=== PATIENT | female | born 1995 | race Caucasian/White ===

== ENCOUNTER 2016-10-07 09:15 | Outpatient (CLI) | payer MEDICAID | END 2016-10-07 09:16 | disposition home or self-care (01) | DX: R13.10 Dysphagia, unspecified (principal) ==

== ENCOUNTER 2016-10-26 11:10 | Outpatient (CLI) | payer MEDICAID | END 2016-10-26 11:11 | disposition home or self-care (01) | DX: E04.1 Nontoxic single thyroid nodule (principal) ==

== ENCOUNTER 2016-11-04 11:53 | Day surgery (SDC) | payer MEDICAID ==
[2016-11-04] MEDS ORDERED: LACTATED RINGERS 1,000 ML IV ONE (12:12)
[2016-11-04] MEDS ORDERED: LIDO GARGLE 30 ML BOTTLE PO ONE (12:36)
[2016-11-04] MEDS ORDERED: SIMETHICONE 40 MG/0.6 ML 30 ML BOTTLE PO ONE (12:36)
[2016-11-04] MEDS ORDERED: BENZOCAINE/TETRACAINE/BUTAMBEN SPRAY 56 GM TOP ONE (12:36)
[2016-11-04] MEDS ORDERED: fentaNYL 250 MCG/5 ML VIAL IVP ONE (12:36)
[2016-11-04] MEDS ORDERED: MIDAZOLAM 2 MG/2 ML VIAL IVP ONE (12:36)
== END 2016-11-04 11:54 | disposition home or self-care (01) ==
PROC: 0DB68ZX Excision of Stomach, Via Natural or Artificial Opening Endoscopic, Diagnostic (ICD-10-PCS; 2016-11-04)
PROC: 0DB38ZX Excision of Lower Esophagus, Via Natural or Artificial Opening Endoscopic, Diagnostic (ICD-10-PCS; principal; 2016-11-04 13:00)
DX: R13.10 Dysphagia, unspecified (principal); K29.70 Gastritis, unspecified, without bleeding; K22.8 Other specified diseases of esophagus; E66.01 Morbid (severe) obesity due to excess calories; F32.9 Major depressive disorder, single episode, unspecified; F41.9 Anxiety disorder, unspecified; Z68.36 Body mass index [BMI] 36.0-36.9, adult; Z83.3 Family history of diabetes mellitus; Z82.49 Family history of ischemic heart disease and other diseases of the circulatory system; Z81.8 Family history of other mental and behavioral disorders; Z80.3 Family history of malignant neoplasm of breast
CPT/HCPCS: 43239; 87081; A9270; J3010; J7120

== ENCOUNTER 2017-06-12 18:59 | Emergency (ER) | payer MEDICAID ==
[2017-06-12] MEDS ORDERED: MAG HYDROX/AL HYDROX/SIMETH 30 ML UDC PO STA (20:12)
[2017-06-12] MEDS ORDERED: LIDOCAINE VISCOUS 2% 15 ML UDC MM STA (20:12)
--- NOTE | 2017-06-12 20:14 | ED Physician Documentation ---
PD HPI HEENT - Stated complaint Stated Complaint: FB IN THROAT - Chief complaint Chief Complaint: Heent - History obtained from History obtained from: Patient - History of Present Illness Timing - onset: Other (In August of last year she had foreign body sensation in her throat after taking her usual medications.Yesterday she was eating walnuts and feels like there is one stuck in her throat, near the level of the cricoid cartilage. She is able to talk normally and handle her secretions and she has been eating and drinking normally since then.Yesterday she was eating walnuts and feels like there is one stuck in her throat, near the level of the cricoid cartilage. She is able to talk normally and handle her secretions and she has been eating and drinking normally since then. She had an upper endoscopy in October which showed mild esophagitis and gastritis with negative biopsies.) Review of Systems Constitutional: reports: Reviewed and negative Nose: reports: Reviewed and negative Throat: reports: Reviewed and negative Cardiac: reports: Reviewed and negative PD PAST MEDICAL HISTORY - Past Medical History Past Medical History: Yes Cardiovascular: None Respiratory: None Endocrine/Autoimmune: None GI: Other : None HEENT: None Psych: Anxiety Musculoskeletal: None Derm: None - Past Surgical History Past Surgical History: No - Present Medications Home Medications: Ambulatory Orders Medication Instructions Recorded Confirmed FLUoxetine [PROzac] 10 mg PO DAILY 11/01/16 06/12/17 - Allergies Allergies/Adverse Reactions: Allergies Allergy/AdvReac Type Severity Reaction Status Date / Time No Known Drug Allergies Allergy Verified 06/12/17 19:05 - Social History Does the pt smoke?: No Smoking Status: Never smoker Does the pt drink ETOH?: No Does the pt have substance abuse?: No - Immunizations Immunizations are current?: Yes - POLST Patient has POLST: No PD ED PE NORMAL - Vitals Vital signs reviewed: Yes - General General: Alert and oriented X 3, No acute distress - HEENT HEENT: PERRL, Pharynx benign, Other (swallowing normally, handleing her secretions) - Neck Neck: Supple, no meningeal sign, No bony TTP - Neuro Neuro: Alert and oriented X 3, Normal speech - Psych Psych: Normal mood, Normal affect Results - Vitals Vitals: Vital Signs - 24 hr 06/12/17 19:02 Temperature 36.5 C Heart Rate 71 Respiratory 18 Rate Blood Pressure 120/76 O2 Saturation 100 Oxygen O2 Source Room air PD MEDICAL DECISION MAKING - ED course ED course: She is handling her secretions well so more likely has trauma to the esophagus then retained foreign body in the esophagus. Watchful waiting was advised. Departure - Departure Disposition: Home, Self Care Clinical Impression: Foreign body sensation in throat Condition: Good Record reviewed to determine appropriate education?: Yes Instructions: ED Foreign Body Esophageal Rslv Comments: Followup with Dr Hendricks if not better by Friday. Return if worse.
[2017-06-12] MEDS ORDERED: MAG HYDROX/AL HYDROX/SIMETH 30 ML UDC ONE (20:19)
[2017-06-12] MEDS ORDERED: LIDOCAINE VISCOUS 2% 15 ML UDC MM ONE (20:19)
[2017-06-12 20:28] VITALS: BP 118/68
== END 2017-06-12 20:28 | disposition home or self-care (01) ==
LOC: ED 18:59
DX: R09.89 Other specified symptoms and signs involving the circulatory and respiratory systems (principal)
CPT/HCPCS: 99282; 99283; A9270

== ENCOUNTER 2020-02-18 11:38 | Outpatient (CLI) | payer OTHER ==
--- NOTE | 2020-02-18 12:05 | XRAY Report ---
Reason: BILATERAL HAND PAIN Procedure Date: 02/18/2020 Accession Number: [id number] / [id number] Procedure: XR - Hand 3 View BILAT CPT Code: Final Report FULL RESULT: PROCEDURE: Hand 3 View BILAT INDICATIONS: BILATERAL HAND PAIN TECHNIQUE: 3 views of the hand(s) acquired. COMPARISON: None FINDINGS: Bones: No fractures or dislocations. No suspicious bony lesions. Joint spaces are well-preserved. No juxta articular osteoporosis. No gross bony erosive changes are seen. Soft tissues: No suspicious soft tissue calcifications. IMPRESSION: Unremarkable radiographic examination of bilateral hands. Reviewed by: Howard Robin MD on 02/18/2020 12:04 PM PDT Approved by: Howard Robin MD on 02/18/2020 12:04 PM PDT Station ID: [id number]
== END 2020-02-18 11:39 | disposition home or self-care (01) ==
LOC: DI 11:38
PROVIDERS: ATTEND Physician Assistant Medical
DX: M79.642 Pain in left hand (principal); M79.641 Pain in right hand

== ENCOUNTER 2020-05-30 10:46 | Outpatient (CLI) | payer OTHER ==
--- NOTE | 2020-05-30 13:46 | Ultrasound Report ---
PROCEDURE: Head or Neck Soft Tissue INDICATIONS: HX OF THYROID NODULE TECHNIQUE: Real time scanning was performed of the thyroid , with image documentation. COMPARISON: 10/26/2016 FINDINGS: The right thyroid lobe measures 5.8 x 1.6 x 1.8 cm. The left thyroid lobe measures 5.1 x 1. 3 x 1.8 cm. The isthmus is 2.6 mm thick. There is a focal ovoid hypoechoic solid nodule in the deep aspect of the right mid pole measuring 1.7 x 0.8 x 0.9 cm. Margins are smooth. No internal echogenic foci. Ti RADS category 4, moderately suspi cious. No other nodules are present. No suspicious lymph nodes in the right neck. IMPRESSION: 1. 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 Subjectively, the morpho logy is stable. Continued surveillance is recommended. Reviewed by: Addie Fuentes MD on 05/30/2020 1:45 PM PDT Approved by: Addie Fuentes MD on 05/30/2020 1:45 PM PDT Station ID: [id number]
== END 2020-05-30 10:47 | disposition home or self-care (01) ==
LOC: DI 10:46
PROVIDERS: ATTEND Physician Assistant Medical
DX: E04.1 Nontoxic single thyroid nodule (principal)
CPT/HCPCS: 76536

== ENCOUNTER 2020-06-01 13:04 | Outpatient (CLI) | payer OTHER ==
[2020-06-01 14:10] VITALS: BP 105/70
--- NOTE | 2020-06-01 14:10 | SLEEP CARE CONSULTATION ---
Information from patient questionnaire entered by Kinga Gómez. I have reviewed and concur with the information entered by Kinga Gómez. This document represents the service I personally performed and the decisions made by me, Yasmin Coats ARNP. History of Present Illness Service Date and Time: 06/01/2020 1304 Reason for Visit: New patient Chief Complaint: reports: Unrefreshed sleep, Snoring, Excessive daytime sleepiness, Observed pauses in breathing, Fatigue, Other (Suspected sleep apnea). denies: Insomnia, Frequent awakenings at night Date of Onset: 2005 Usual bedtime: varies; midnight in last month Time it takes to fall asleep: a few hours Snores at night: Yes Observed to quit breathing while asleep: Yes Sleeps alone due to snoring: No Number of times waking at night: 1-2 Reasons for waking at night: reports: Bathroom, Other (unknown). denies: Choking, Snoring, Gasping for air Toss, Turn, or Twitch while sleeping: Yes Recalls having dreams: Yes Usually gets out of bed at: varies; usually 1100 Feels refreshed in the morning: No Morning headache: No Sleepy or fatigued during the day: Yes Ever fallen asleep while driving: No (occasional drowsy driving) Takes day naps: Yes (varies, 1-2 times a week now) Dreams during day naps: No Prior sleep studies: No Additional HPI information: I had the pleasure of seeing MIGUEL GALICIA today regarding the possibility of her having a sleep disorder. Her current complaints are snoring, observed pauses in breathing, unrefreshed sleep, excessive daytime sleepiness and fatigue. She comes in due to "suspected sleep apnea". Patient states she has a varied sleep routine. She states for the last month she has bee going to bed about midnight and getting up about 1100 in the morning. The month before she was going to bed about 9PM. She does not vary this on the weekend. 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 She has had many people tell her that she snores loudly and have witness pauses in her breathing. She does not awaken rested and is very sleepy during the day. Her mother has sleep apnea and usually sleeps in a chair. Her mother has never been diagnosed or treated with a CPAP to her knowledge. - Parasomnia Symptoms Ever been unable to move upon waking from sleep: No Walks in sleep: No Talks in sleep: Yes (used to talk a long time ago) Ever acted out dreams in sleep: No Ever felt weak in the knees when startled or emotional: No Bothered by creepy, crawly, restless sensations in legs: No Problems with memory or concentration: Yes (both on daily basis) Subjective Initial [place] Sleepiness Scale score: 7 (in 2020) Past Medical History Past Medical History: reports: Dysphagia, Insulin resistance, Anxiety, Depression, GERD, Other (unidentified hand problem, likely PCOS, deviated septum). 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 Patient is Single and lives in [place]. Have you smoked in the past 12 months: No Alcohol use: No Caffeine use: Yes Caffeine amount and frequency: 1-2 cups/day Family History Family history of sleep disordered breathing: Yes Family Hx Sleep Apnea: Mother: Snoring, Sleep apnea - Untreated, Father: Snoring Allergies and Home Medications Drug allergies reviewed: Yes (penicillin) Home medication list reviewed: Yes Allergy and home medication list: Flonase, prn Allergy medication as needed Review of Systems Weight gain over past 5 years: 50+ Cardiovascular: denies: high blood pressure, palpitations, chest pain, leg or foot swelling Respiratory: reports: shortness of breath. denies: chronic cough Gastrointestinal: reports: heartburn, difficulty swallowing Urinary: reports: frequency Neurological: denies: headaches, seizure, head trauma, speech dysfunction, gait or balance problems, fainting or unconsciousness Psychiatric: reports: anxiety, depression. denies: Attention Deficit Hyperactivity, mood disorder, claustrophobia Ear/Nose/Throat: reports: nasal congestion, sinus problems (possible deviated septum), nose bleeds, wisdom teeth removed. denies: dry mouth/throat, hoarseness, injury to nose, tonsillectomy Endocrine: reports: sluggishness, excessive thirst. denies: thyroid disease Musculoskeletal: reports: joint pain. denies: muscle pain or cramping Immunologic: reports: itching. denies: allergies to food or environment Physical Exam Blood Pressure: 105/70 Cuff size: long Heart Rate: 64 O2 Saturation: 97 Height: 5 ft 4 in Weight: 246 lb Body Mass Index: 42.2 BMI Classification: Morbidly Obese Neck circumference: 14.75 HEENT: No craniofacial malformation Nostrils: partially obstructed Turbinates: swollen Septum: deviated right Mouth and throat: narrow oropharynx Soft palate: normal Hard palate: arched Uvula: normal Uvula visualization: 25% Mallampati Class III Tongue: normal in size Tonsils: 2+ Chin and jaw: normal size and position Neck: normal w/o lymphadenopathy or thyromegaly Heart: regular rate and rhythm Lungs: clear bilaterally Impression and Plan 1. Suspected Obstructive Sleep Apnea-Hypopnea Syndrome, as suggested by a history of loud and irregular snoring, observed cessation of breath while asleep, frequent awakening during the night, unrefreshed sleep, cognitive impairment, and excessive daytime sleepiness. I reviewed with patient that a narrow oropharynx and obesity are common predisposing factors for obstructive sleep apnea-hypopnea syndrome. Patient also encouraged to try and standardize the time she gets up in the morning and when she goes to bed. The constant change of sleep schedule can cause problems with unrefreshed sleep and daytime sleepiness. She voiced understanding. I recommend proceeding to polysomnography to confirm the diagnosis and to assess severity. If the patient has significant sleep disordered breathing, a manual CPAP titration study will also be performed to find the optimal treatment pressure. I informed the patient of what the sleep studies involve and after some discussion, obtained agreement to proceed. The pathophysiology of obstructive sleep apnea-hypopnea syndrome was discussed with the patient and health risks of cardiovascular and cerebrovascular disease if not treated. AAS brochure for obstructive sleep apnea-hypopnea syndrome given and reviewed. 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 Patient agreed to plan. * Schedule polysomnography +- manual CPAP titration study. * Avoid long distance driving or driving when feeling sleepy. * Avoid alcohol, sedative and muscle relaxant around bedtime. * Attempt to lose weight. * Review instructions provided by trained office staff on how to prepare for the sleep study. * Return for follow-up after sleep study completed. Visit Type: In Office Time Spent with Patient (minutes): 30 Provider Statement: I spent 100% of the Face to Face Visit with the patient with greater than 50% spent counseling the patient and coordination of care.
== END 2020-06-01 13:05 | disposition home or self-care (01) ==
LOC: SC 13:04
PROVIDERS: ATTEND Nurse Practitioner Family
DX: G47.10 Hypersomnia, unspecified (principal); R06.83 Snoring; R53.83 Other fatigue; G47.8 Other sleep disorders; R06.81 Apnea, not elsewhere classified; E66.01 Morbid (severe) obesity due to excess calories; Z68.41 Body mass index [BMI] 40.0-44.9, adult
CPT/HCPCS: 99204; 99212

== ENCOUNTER 2020-08-07 20:31 | Outpatient (CLI) | payer OTHER | END 2020-08-07 20:32 | disposition home or self-care (01) | LOC: SC 20:31 | PROVIDERS: ATTEND Nurse Practitioner Family | DX: G47.61 Periodic limb movement disorder (principal); E66.01 Morbid (severe) obesity due to excess calories; Z68.41 Body mass index [BMI] 40.0-44.9, adult | CPT/HCPCS: 95810 ==

== ENCOUNTER 2020-08-22 14:23 | Outpatient (CLI) | payer OTHER ==
--- NOTE | 2020-08-22 14:44 | SLEEP CARE CONSULTATION ---
Information from patient questionnaire entered by Kacey Smith. I have reviewed and concur with the information entered by Kacey Smith. This document represents the service I personally performed and the decisions made by , Yasmin Coats ARNP. History of Present Illness Service Date and Time: 08/22/20201422 Initial [place] Sleepiness Scale score: 7 (in 2019) Current [place] Sleepiness Scale score: 3 Additional HPI information: MIGUEL GRAYSON returns for follow up and results of the recently performed polysomnography. The patient was informed of the following findings: Patient has no significant sleep disordered breathing with an AHI of 3.9 and a aamir oxygen saturation of 83%. She did have a supine AHI of 6.8 and moderate PLMs that did not affect sleep fragmentation. I explained the pathophysiology behind obstructive sleep apnea. Patient does not have sleep apnea and was advised how weight gain could increase the risk of developing sleep apnea in the future. I strongly encouraged the patient to lose weight. Patient does not have significant sleep disordered breathing but has elevated AHI in supine position so advised positional therapy. Methods to achieve positional management therapy were discussed; such as, positioning with pillows, wearing a T-shirt with tennis balls sewn into the back, Rematee shirt, Zzomba belt and Slumberbump belt. Pamphlets provided on how to obtain the commercially available products. Patient has moderate to loud snoring. Snoring can be reduced by weight loss. Weight loss is best achieved with diet consult. Patient instructed to contact PCP for referral. Snoring can also be treated with an oral appliance from a dentist. Advised to check insurance coverage. In addition, an ENT evaluation can be do to see if other treatment is indicated. Sleep Study - Results Type of Sleep Study: Polysomnography Prior sleep studies: No - Discussion Sleep Study discussion: IMPRESSION: The quality of the study is good. The patient had reduced sleep efficiency due to sleep onset insomnia and a prolonged awakening during the night. The sleep architecture was relatively normal considering the first-night effect. Respiratory monitoring showed no significant sleep disordered breathing (AHI = 3.9) or hypoxia (aamir oxygen saturation of 83% but only 2% to the total sleep time was spent with oxygen saturation below 90%). The few respiratory events occurred mainly during supine sleep (supine AHI = 6.8; non-supine = 1.51). Snore was moderate to loud in intensity. There was moderate periodic leg movement of sleep not associated with sleep fragmentation. Cardiac rhythm was normal sinus rhythm without significant arrhythmia. No abnormal behavior (parasomnia) observed during the night. Allergies and Home Medications Drug allergies reviewed: Yes (penicillin) Home medication list reviewed: Yes (wellbutrin, oral contraceptive) Review of Systems Review of systems same as previous: Yes (no changes) Physical Exam Heart Rate: 73 O2 Saturation: 97 Height: 5 ft 4 in Weight: 249 lb Body Mass Index: 42.7 BMI Classification: Morbidly Obese Impression and Plan 1. Periodic limb movement, moderate, that did not fragment patients sleep. Periodic limb movement of sleep (PLMS) is characterized by episodes of repetitive limb movements that occur during sleep and usually involve the lower limbs. The etiology is unknown but can be associated with restless leg syndrome (RLS), neuropathy, spinal cord diseases, kidney disease, rheumatological disorders, narcolepsy, obstructive sleep apnea, and REM sleep behavior disorder. Other factors that can increase PLMS and/or RLS are heredity and iron deficiency as reflected by a low serum ferritin level below 50 to 75mcg / L. Several medications can precipitate or aggravate PLMS such as selective serotonin re-up take inhibitor antidepressants, tricyclic antidepressants, lithium, and dopamine receptor antagonists with the exception of bupropion. Caffeine can also aggravate PLMS and should be avoided. Sleep hygiene methods can also improve sleep as well as lifestyle changes such as regular exercise. Patient was advised that no treatment is needed at this time. If symptoms increase, then further evaluation is indicated. 2. Snoring but no significant sleep disordered breathing. Patient advised that often weight loss will reduce snoring as well as apnea risk. An oral appliance c an also be used for snoring. This would require a dental consultation. Patient cautioned not to use other online appliances as can cause bite issues. A list of accredited dentists in area and one local dentist who makes oral appliances given. Patient is advised to check if insurance will cover. An ENT consult can also be helpful to determine if any other treatment is an option. * Attempt to lose weight * Avoid alcohol consumption near bedtime * The patient is cautioned about driving until sleepiness is completely resolved. * Return as needed. Counseling Topics: Weight loss health impact Visit Type: In Office Time Spent with Patient (minutes): 24 Provider Statement: I spent 100% of the Face to Face Visit with the patient with greater than 50% spent counseling the patient and coordination of care.
== END 2020-08-22 14:24 | disposition home or self-care (01) ==
LOC: SC 14:23
PROVIDERS: ATTEND Nurse Practitioner Family
DX: G47.61 Periodic limb movement disorder (principal); R06.83 Snoring; E66.01 Morbid (severe) obesity due to excess calories; Z68.41 Body mass index [BMI] 40.0-44.9, adult
CPT/HCPCS: 99212; 99213

== ENCOUNTER 2023-08-11 08:00 | Outpatient (CLI) | payer OTHER | END 2023-08-11 08:01 | disposition EMS.NT | LOC: EMS 08:00 | DX: S50.312A Abrasion of left elbow, initial encounter (principal); M53.3 Sacrococcygeal disorders, not elsewhere classified; V57.5XXA Driver of pick-up truck or van injured in collision with fixed or stationary object in traffic accident, initial encounter; Y92.414 Local residential or business street as the place of occurrence of the external cause ==

== ENCOUNTER 2023-08-13 15:36 | Emergency (ER) | payer OTHER ==
[2023-08-13] MEDS ORDERED: HYDROmorphone 1 MG/ML CARPUJECT IVP STA (16:05)
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
[2023-08-13 16:40] LABS: BASOPHILS # (AUTO) 0.1 10^3/uL (0.0-0.1); BASOPHILS % (AUTO) 0.6 %; EOSINOPHILS # (AUTO) 0.2 10^3/uL (0.0-0.7); EOSINOPHILS % (AUTO) 1.6 %; HGB - HEMOGLOBIN 13.3 g/dL (12.0-16.0); LYMPHOCYTES # (AUTO) 2.9 10^3/uL (1.5-3.5); LYMPHOCYTES % (AUTO) 27.2 %; MEAN CORPUSCULAR HEMOGLOBIN 28.4 pg (27.0-31.0); MEAN CORPUSCULAR HGB CONC 31.7 g/dL (32.0-36.0); MEAN CORPUSCULAR VOLUME 89.7 fL (81.0-99.0); MEAN PLATELET VOLUME 10.2 fL (7.9-10.8); MONOCYTES # (AUTO) 0.6 10^3/uL (0.0-1.0); MONOCYTES % (AUTO) 5.3 %; NEUTROPHILS % (AUTO) 64.8 %; PLT - PLATELET COUNT 351 10^3/uL (130-450); RED BLOOD COUNT 4.68 10^6/uL (4.20-5.40); RED CELL DISTRIBUTION WIDTH 13.4 % (12.0-15.0); WHITE BLOOD COUNT 10.7 x10^3/uL (4.8-10.8)
[2023-08-13 16:54] LABS: ALBUMIN 4.7 g/dL (3.2-5.5); ALBUMIN/GLOBULIN RATIO 1.4 (1.0-2.2); BILIRUBIN,TOTAL 0.4 mg/dL (0.2-1.0); CALCIUM 9.9 mg/dL (8.5-10.3); CREATININE 0.9 mg/dL (0.6-1.3); POTASSIUM 3.9 mmol/L (3.5-4.5); TOTAL PROTEIN 8.1 g/dL (6.4-8.9)
[2023-08-13 17:02] LABS: HCG,QUALITATIVE BLOOD NEGATIVE
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
[2023-08-13] MEDS ORDERED: oxyCODONE 5 MG TABLET PO STA (18:44)
[2023-08-13] MEDS ORDERED: iohexoL-300 100 ML VIAL IVP ONE (18:49)
[2023-08-13 18:54] VITALS: BP 109/57; O2SAT 100
== END 2023-08-13 18:52 | disposition home or self-care (01) ==
LOC: ED 15:36
DX: S32.2XXA Fracture of coccyx, initial encounter for closed fracture (principal); V89.2XXA Person injured in unspecified motor-vehicle accident, traffic, initial encounter; Y92.410 Unspecified street and highway as the place of occurrence of the external cause
CPT/HCPCS: 36415; 72193; 80053; 83690; 84703; 85025; 99284; A9270; J1170; Q9967